=== PATIENT | female | born 1970 | race Caucasian/White ===

== ENCOUNTER 2024-10-17 13:36 | Emergency (ER) | payer MEDICAID ==
[2024-10-17] MEDS: Ondansetron 4 MG/2 ML SDV IVPUSH ONE (14:22)
[2024-10-17] MEDS: HYDROmorphone 1 MG/ML Syringe IVPUSH ONE (14:24)
== END 2024-10-17 15:11 | disposition home or self-care (01) ==
LOC: VM.ED 13:36
DX: R07.81 Pleurodynia (principal); Z79.82 Long term (current) use of aspirin; Z79.51 Long term (current) use of inhaled steroids; Z79.899 Other long term (current) drug therapy; W19.XXXA Unspecified fall, initial encounter; Y92.002 Bathroom of unspecified non-institutional (private) residence as the place of occurrence of the external cause
CPT/HCPCS: 71101-LT; 96374; 96375; 99283; 99284-25; J1171; J2405